=== PATIENT | male | born 1955 | race Caucasian/White ===

== ENCOUNTER 2016-09-16 20:07 | Emergency (ER) | payer OTHER ==
[2016-09-16 20:48] LABS: BASOPHIL 0.2 % (0-2); EOSINOPHIL 2.7 % (0-5); HGB 14.5 g/dl (13.2-18.0); LYMPHOCYTE 16.8 % (15-48); MCH 31.9 pg (25.0-31.0); MCHC 35.4 g/dL (32.0-36.0); MCV 90.3 fL (78.0-100.0); MONOCYTE 8.7 % (0-12); MPV 10.7 fL (6.0-9.5); NEUTROPHIL 71.6 % (41-80); PLT 199 K/uL (150-400); RBC 4.54 M/uL (4.70-6.00); RDW 12.4 % (11.5-14.0); WBC 11.6 K/uL (4.0-10.5)
[2016-09-16 20:55] LABS: BILIRUBIN NEGATIVE (NEGATIVE); BLOOD 3+ Ery/uL (NEGATIVE); CLARITY CLOUDY (CLEAR); COLOR AMBER (YELLOW); GLUCOSE (U) NORMAL (NORMAL); KETONE (U) TRACE mg/dL (NEGATIVE); LEUKOCYTES NEGATIVE Leu/uL (NEGATIVE); NITRITE NEGATIVE (NEGATIVE); PROTEIN 2+ mg/dL (NEGATIVE); SPECIFIC GRAVITY >=1.030 (1.001-1.030); pH 5.5 (5.0-9.0)
[2016-09-16 21:04] LABS: ALBUMIN 4.3 g/dL (3.5-5.0); BILIRUBIN - TOTAL 0.4 mg/dL (0.1-1.0); CREATININE 1.3 mg/dL (0.7-1.2); GLOBULIN (CALCULATION) 2.7 g/dL (2.2-4.2); PHOSPHORUS 2.1 mg/dL (2.7-4.5); POTASSIUM 4.2 mmol/L (3.5-5.1)
[2016-09-16 21:05] LABS: URINARY RBC TNTC
[2016-09-16 21:06] LABS: CALCIUM OXALATE CRYSTALS MODERATE; SQUAMOUS EPITHELIAL CELLS RARE
== END 2016-09-17 00:33 | disposition home or self-care (01) ==
LOC: FER 20:07
PROVIDERS: Emergency Medicine Emergency Medical Services
DX: N13.2 Hydronephrosis with renal and ureteral calculous obstruction (principal); E86.9 Volume depletion, unspecified; E78.5 Hyperlipidemia, unspecified; Z79.899 Other long term (current) drug therapy; Z90.89 Acquired absence of other organs
CPT/HCPCS: 36415; 80053; 81001; 84100; 85025; 87088; J1170; J1885; J2405